=== PATIENT | male | born 1980 | race Caucasian/White ===

== ENCOUNTER 2021-11-10 17:19 | Emergency (ER) | payer OTHER ==
[~2021-11-10] VITALS: Ht 170.2 cm; Wt 85.0 kg
[2021-11-10] MEDS ORDERED: KETOROLAC 60MG/2ML VIAL IM ONE (18:15)
[2021-11-10 19:01] VITALS: BP 137/75
== END 2021-11-10 19:03 | disposition home or self-care (01) ==
LOC: ER 17:19
DX: M54.2 Cervicalgia (principal)
CPT/HCPCS: 96372; 99283; J1885